=== PATIENT | female | born 1945 | race Caucasian/White ===

== ENCOUNTER → 2017-06-28 | Outpatient (CLI) | payer BC ==
--- NOTE | 2017-06-28 15:20 | MAMMOGRAPHY REPORT ---
BILATERAL DIGITAL SCREENING MAMMOGRAM WITH CAD: 06/28/2017 CLINICAL HISTORY: Routine screening. Patient has no complaints. TECHNIQUE: Bilateral CC and MLO views were obtained. Current study was also evaluated with a Compute r Aided Detection (CAD) system. COMPARISON: Comparison is made to exams dated: 06/25/2016 mammogram, 06/16/2015 mammogram, 06/12/2014 mammogram, 06/11/2013 mammogram, 06/08/2012 mammogram, and 06/07/2011 mammogram - [facility]. BREAST COMPOSITION: There are scattered areas of fibroglandular density in both breasts. FINDINGS: There are a few scattered benign-appearing microcalcifications bilaterally, however, there is a possible cluster of microcalcifications in the upper outer middle one third of the right breast for which additional spot magnification views are recommended. A possible area of architectural dis tortion in the upper outer middle one third of the right breast warrant additional spot compression t omosynthesis views and possible ultrasound, although this could represent normal overlapping fibrogla ndular tissue. No other suspicious mass, architectural distortion or cluster of microcalcifications is seen bilatera lly. IMPRESSION: ACR BI-RADS CATEGORY 0: INCOMPLETE EVALUATION: NEED ADDITIONAL IMAGING EVALUATION The possible clustered microcalcifications in the right upper outer quadrant and possible area of arc hitectural distortion also in the right upper outer quadrant need additional imaging evaluation. The patient will be called to schedule an appointment. Approximately 10% of breast cancers are not detected with mammography. A negative mammographic report should not delay biopsy if a clinically suggestive mass is present. Mayela Ruelas M.D. ay/:06/28/2017 12:19:49 Chemical Recovery Operator: Jeanne Parish, [facility] letter sent: Addl Imaging 0 BI-RADS Code: ACR BI-RADS Category 0: Incomplete Evaluation: Need Additional Imaging Evaluation
== END | disposition home or self-care (01) ==
LOC: C.MAMM 09:55
PROVIDERS: ATTEND Family Medicine
DX: Z12.31 Encounter for screening mammogram for malignant neoplasm of breast (principal); R92.8 Other abnormal and inconclusive findings on diagnostic imaging of breast

== ENCOUNTER → 2017-07-07 | Outpatient (CLI) | payer BC ==
--- NOTE | 2017-07-07 14:33 | MAMMOGRAPHY REPORT ---
UNILATERAL RIGHT DIGITAL DIAGNOSTIC MAMMOGRAM TOMOSYNTHESIS AND TARGETED RIGHT ULTRASOUND: 07/07/2017 CLINICAL HISTORY: Callback from screening mammogram for right breast calcifications and possible righ t breast architectural distortion. TECHNIQUE: Breast tomosynthesis in addition to standard 2D mammography was performed. Spot compress ion right CC and MLO 2-D and tomosynthesis images and spot magnification right CC and ML views were o btained. COMPARISON: Comparison is made to exams dated: 06/28/2017 mammogram, 06/25/2016 mammogram, 06/16/2015 mammogram, 06/12/2014 mammogram, 06/11/2013 mammogram, and 06/08/2012 mammogram - [facility]. BREAST COMPOSITION: There are scattered areas of fibroglandular density in the right breast. FINDINGS: Spot magnification views of the right breast demonstrate a small 3 mm cluster of coarse he terogeneous calcifications in the right upper outer quadrant. The calcifications are seen to be with in an oval partially circumscribed and partially obscured 7 mm mass. The mass appears stable mammogr aphically compared to multiple prior exams dating back to at least the 2008 and 2007 exams. However, the calcifications have progressively increased since the 2012 exam. The area of questionable architectural distortion in the right upper outer quadrant does not persist on the additional spot compression views; findings are benign and compatible with normal fibroglandul ar tissue. Targeted ultrasound was performed of the right upper outer quadrant in the region of the mammographic mass and calcifications. In the right breast at 9:30, approximately 5 cm from the nipple, there is an oval isoechoic circumscribed parallel 6 x 3 x 6 mm mass. Echogenic foci are seen within the mass, which correspond with the calcifications seen mammographically. Given the long-term mammographic st ability of the mass, the mass is likely benign and likely represents a fibroadenoma. The calcificati ons within the mass are likely due to degeneration of the fibroadenoma. Recommend follow-up imaging in 6 months to reevaluate. IMPRESSION: ACR-BI-RADS CATEGORY 3: PROBABLY BENIGN, TARGETED ULTRASOUND ACR-BI-RADS CATEGORY 3: PRO BABLY BENIGN Small cluster of coarse heterogeneous calcifications within a stable circumscribed benign-appearing m ass in the right 9:30 breast which has been stable mammographically dating back to at least the 2007 exam. The mass and calcifications are probably benign and likely represent a degenerating fibroadeno ma. Recommend follow-up diagnostic tomosynthesis mammograms from possible ultrasound of the right br east in 6 months to reevaluate. The patient has been verbally notified of the results. Approximately 10% of breast cancers are not detected with mammography. A negative mammographic report should not delay biopsy if a clinically suggestive mass is present. Ilda Gunn M.D. ah/:07/07/2017 13:31:02 Mechanical Integrity Engineer: Rosa DENTON(Dyllan)(M), [facility] letter sent: Follow Up Recommended 3 BI-RADS Code: ACR-BI-RADS Category 3: Probably Benign Ultrasound BI-RADS: ACR-BI-RADS Category 3: Pr obably Benign
== END | disposition home or self-care (01) ==
LOC: C.MAMM 12:41
PROVIDERS: ATTEND Family Medicine
DX: R92.1 Mammographic calcification found on diagnostic imaging of breast (principal); N63.10 Unspecified lump in the right breast, unspecified quadrant

== ENCOUNTER → 2018-01-05 | Outpatient (CLI) | payer BC ==
--- NOTE | 2018-01-05 14:44 | MAMMOGRAPHY REPORT ---
UNILATERAL RIGHT DIGITAL DIAGNOSTIC MAMMOGRAM TOMOSYNTHESIS WITH CAD: 01/05/2018 CLINICAL HISTORY: 6 Month Follow-up Right. TECHNIQUE: Breast tomosynthesis in addition to standard 2D mammography was performed. Current study was also evaluated with a Computer Aided Detection (CAD) system. Right CC and MLO 2D and tomosynthes is images and spot magnification right CC and ML views were obtained. COMPARISON: Comparison is made to exams dated: 07/07/2017 ultrasound, 07/07/2017 mammogram, 06/28/20 17 mammogram, 06/25/2016 mammogram, 06/16/2015 mammogram, and 06/12/2014 mammogram - [facility]. BREAST COMPOSITION: There are scattered areas of fibroglandular density in the right breast. FINDINGS: Again noted is an oval partially circumscribed and partially obscured 8 mm mass within the right upper outer quadrant. The mass is stable in size dating back to at least the 2007 exam. A few coarse heterogeneous calcifications are seen within the mass which are not significantly changed com pared to the June 2017 exam on spot magnification views. A corresponding circumscribed benign-truman earing isoechoic mass was seen on the prior ultrasound exam. 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 The remainder of the right breast is stable compared to prior exams, without suspicious masses, calci fications, or areas of architectural distortion noted. IMPRESSION: ACR-BI-RADS CATEGORY 3: PROBABLY BENIGN Benign-appearing 8 mm mass in the right upper outer quadrant is stable dating back to the 2007 exam. Calcifications seen within the mass are stable compared to the June 2017 exam. 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 Recommend bilateral diagnostic tomosynthesis mammograms in 6 months, to reevaluate the right breast findings and for rou denny mammography of the left breast. The patient has been verbally notified of the results. Approximately 10% of breast cancers are not detected with mammography. A negative mammographic report should not delay biopsy if a clinically suggestive mass is present. Ilda Gunn M.D. /:01/05/2018 09:15:51 Director Teen Post: Rosa DENTON(Dyllan)(M), [facility] letter sent: Follow Up Recommended 3 BI-RADS Code: ACR-BI-RADS Category 3: Probably Benign
== END | disposition home or self-care (01) ==
LOC: C.MAMM 08:49
PROVIDERS: ATTEND Family Medicine
DX: N63.11 Unspecified lump in the right breast, upper outer quadrant (principal); R92.1 Mammographic calcification found on diagnostic imaging of breast